=== PATIENT | female | born 1950 | race Caucasian/White ===

== ENCOUNTER 2021-06-07 09:11 | Outpatient (CLI) | payer MEDICARE, OTHER ==
[2021-06-07 13:51] LABS: BASOPHILS % (AUTO) 0.3 %; EOSINOPHILS # (AUTO) 0.1 10^3/uL (0.0-0.7); EOSINOPHILS % (AUTO) 1.2 %; HCT - HEMATOCRIT 35.9 % (37.0-47.0); HGB - HEMOGLOBIN 11.5 g/dL (12.0-16.0); LYMPHOCYTES # (AUTO) 2.1 10^3/uL (1.5-3.5); LYMPHOCYTES % (AUTO) 32.4 %; MEAN CORPUSCULAR HEMOGLOBIN 29.1 pg (27.0-31.0); MEAN CORPUSCULAR VOLUME 90.9 fL (81.0-99.0); MEAN PLATELET VOLUME 11.6 fL (7.9-10.8); MONOCYTES # (AUTO) 0.5 10^3/uL (0.0-1.0); MONOCYTES % (AUTO) 7.4 %; NEUTROPHILS # (AUTO) 3.8 10^3/uL (1.5-6.6); NEUTROPHILS % (AUTO) 58.5 %; PLT - PLATELET COUNT 199 10^3/uL (130-450); RED BLOOD COUNT 3.95 10^6/uL (4.20-5.40); RED CELL DISTRIBUTION WIDTH 12.8 % (12.0-15.0); WHITE BLOOD COUNT 6.5 x10^3/uL (4.8-10.8)
[2021-06-07 14:28] LABS: THYROID STIMULATING HORMONE 0.68 uIU/mL (0.34-5.60)
[2021-06-07 14:45] LABS: ALBUMIN/GLOBULIN RATIO 1.4 (1.0-2.2); ALKALINE PHOSPHATASE 59 IU/L (42-121); ALT ALANINE AMINOTRANSFERASE 15 IU/L (10-60); AST ASPARTATE AMINOTRANSFERASE 17 IU/L (10-42); BILIRUBIN,TOTAL 0.9 mg/dL (0.2-1.0); BUN - BLOOD UREA NITROGEN 25 mg/dL (6-20); CALCIUM 9.5 mg/dL (8.5-10.3); CARBON DIOXIDE - CO2 25 mmol/L (21-32); CHLORIDE 101 mmol/L (101-111); CHOL/HDL RATIO 2.7 (<4.4); CHOLESTEROL 129 mg/dL; CREATININE 0.9 mg/dL (0.4-1.0); GFR - MDRD 62 (>89); GLUCOSE 107 mg/dL (70-100); HDL CHOLESTEROL 47 mg/dL; LDL CHOLESTEROL,CALCULATED 67 mg/dL; LDL/HDL RATIO 1.4 (<4.4); POTASSIUM 4.4 mmol/L (3.5-5.0); SODIUM 137 mmol/L (135-145); TOTAL PROTEIN 6.9 g/dL (6.7-8.2); TRIGLYCERIDES 75 mg/dL; VLDL CHOLESTEROL 15 mg/dL
== END 2021-06-07 09:12 | disposition home or self-care (01) ==
LOC: LAB.N 09:11
PROVIDERS: ATTEND Registered Nurse
DX: K50.90 Crohn's disease, unspecified, without complications (principal); K21.9 Gastro-esophageal reflux disease without esophagitis; Z79.899 Other long term (current) drug therapy; E78.5 Hyperlipidemia, unspecified; E03.9 Hypothyroidism, unspecified
CPT/HCPCS: 36415; 80053; 80061; 83721; 84443; 85025

== ENCOUNTER 2021-11-11 17:17 | Outpatient (CLI) | payer MEDICARE, OTHER | END 2021-11-11 17:18 | disposition EMS.NT | LOC: EMS 17:17 | DX: Z03.89 Encounter for observation for other suspected diseases and conditions ruled out (principal) ==

== ENCOUNTER 2022-05-25 08:52 | Outpatient (CLI) | payer MEDICARE, OTHER ==
[2022-05-25 12:53] LABS: BASOPHILS % (AUTO) 0.3 %; EOSINOPHILS # (AUTO) 0.2 10^3/uL (0.0-0.7); EOSINOPHILS % (AUTO) 2.2 %; HCT - HEMATOCRIT 36.7 % (37.0-47.0); HGB - HEMOGLOBIN 11.4 g/dL (12.0-16.0); LYMPHOCYTES # (AUTO) 2.1 10^3/uL (1.5-3.5); LYMPHOCYTES % (AUTO) 30.9 %; MEAN CORPUSCULAR HEMOGLOBIN 28.3 pg (27.0-31.0); MEAN CORPUSCULAR HGB CONC 31.1 g/dL (32.0-36.0); MEAN CORPUSCULAR VOLUME 91.1 fL (81.0-99.0); MEAN PLATELET VOLUME 11.4 fL (7.9-10.8); MONOCYTES # (AUTO) 0.4 10^3/uL (0.0-1.0); MONOCYTES % (AUTO) 6.1 %; NEUTROPHILS # (AUTO) 4.1 10^3/uL (1.5-6.6); NEUTROPHILS % (AUTO) 60.4 %; PLT - PLATELET COUNT 200 10^3/uL (130-450); RED BLOOD COUNT 4.03 10^6/uL (4.20-5.40); RED CELL DISTRIBUTION WIDTH 13.2 % (12.0-15.0); WHITE BLOOD COUNT 6.9 x10^3/uL (4.8-10.8)
[2022-05-25 13:15] LABS: ALBUMIN 3.8 g/dL (3.2-5.5); ALBUMIN/GLOBULIN RATIO 1.2 (1.0-2.2); ALKALINE PHOSPHATASE 65 IU/L (42-121); ALT ALANINE AMINOTRANSFERASE 17 IU/L (10-60); AST ASPARTATE AMINOTRANSFERASE 18 IU/L (10-42); BILIRUBIN,TOTAL 0.5 mg/dL (0.2-1.0); BUN - BLOOD UREA NITROGEN 23 mg/dL (6-20); CALCIUM 9.4 mg/dL (8.5-10.3); CARBON DIOXIDE - CO2 23 mmol/L (21-32); CHLORIDE 106 mmol/L (101-111); CHOL/HDL RATIO 2.5 (<4.4); CHOLESTEROL 130 mg/dL; CREATININE 0.7 mg/dL (0.4-1.0); GFR - MDRD 82 (>89); GLUCOSE 118 mg/dL (70-100); HDL CHOLESTEROL 51 mg/dL; LDL CHOLESTEROL,CALCULATED 68 mg/dL; LDL/HDL RATIO 1.3 (<4.4); POTASSIUM 4.7 mmol/L (3.5-5.0); SODIUM 137 mmol/L (135-145); TOTAL PROTEIN 6.9 g/dL (6.7-8.2); TRIGLYCERIDES 56 mg/dL; VLDL CHOLESTEROL 11 mg/dL
[2022-05-25 13:29] LABS: THYROID STIMULATING HORMONE 0.72 uIU/mL (0.34-5.60)
== END 2022-05-25 08:53 | disposition home or self-care (01) ==
LOC: LAB.N 08:52
PROVIDERS: ATTEND Registered Nurse
DX: I10 Essential (primary) hypertension (principal); E03.9 Hypothyroidism, unspecified; E78.5 Hyperlipidemia, unspecified
CPT/HCPCS: 36415; 80053; 80061; 83721; 84443; 85025

== ENCOUNTER 2022-06-21 14:29 | Emergency (ER) | payer MEDICARE, OTHER ==
[2022-06-21] MEDS ORDERED: HYDROmorphone 1 MG/ML CARPUJECT IVP STA (15:02)
--- NOTE | 2022-06-21 15:09 | ED Physician Documentation ---
History of Present Illness - Stated complaint Stated Complaint: RT SIDE PX/COUGH - Chief complaint Chief Complaint: Abd Pain - History obtained from History obtained from: Patient - Additonal information Additional information: Patient is a 71-year-old female who states that she had COVID about 2 months ago. She states that she has had a chronic cough since that time. Decreased appetite over the past few days. She states that last night she was at home when she felt lightheaded, dizzy, slipped fell and fell to the floor. Hit the right side of her chest and the right side of her back on her walker and on the floor. No loss of consciousness. No head, neck, back pain. She is complaining of right-sided posterior rib pain and right-sided low back pain/flank pain. No numbness or tingling. No loss of bowel or bladder control has not taken anything for the pain. Is not on blood thinners. No seizure activity. Review of Systems Constitutional: denies: Fever, Chills Nose: reports: Rhinorrhea / runny nose, Congestion Throat: denies: Sore throat Cardiac: denies: Chest pain / pressure, Palpitations Respiratory: reports: Cough GI: denies: Abdominal Pain, Vomiting, Diarrhea : denies: Dysuria Skin: denies: Rash Musculoskeletal: denies: Neck pain, Back pain Neurologic: denies: Headache PD PAST MEDICAL HISTORY - Past Medical History Past Medical History: Yes Cardiovascular: Hypertension Endocrine/Autoimmune: HyPOthyroidism - Present Medications Home Medications: Ambulatory Orders Medication Instructions Recorded Confirmed Aspirin EC [Ecotrin] 81 mg PO DAILY 06/21/22 06/21/22 Atorvastatin [Lipitor] 20 mg PO QPM 06/21/22 06/21/22 Carvedilol [Coreg] 6.25 mg PO DAILY 06/21/22 06/21/22 Furosemide [Lasix] 20 mg PO DAILY 06/21/22 06/21/22 Levothyroxine [Synthroid] 112 mcg PO QDAC 06/21/22 06/21/22 cephALEXin [Keflex] 500 mg PO Q6H #20 cap 06/21/22 lisinopriL [Lisinopril] 10 mg ORAL DAILY 06/21/22 06/21/22 oxyCODONE [Roxicodone] 5 mg PO Q6H PRN #14 tablet MDD 6 06/21/22 - Allergies Allergies/Adverse Reactions: Allergies Allergy/AdvReac Type Severity Reaction Status Date / Time codeine Allergy Headache Verified 06/21/22 14:41 Influenza Virus Vaccines Allergy Unknown Verified 06/21/22 14:41 sulfacetamide Allergy Unknown Verified 06/21/22 14:41 [From Sulfamide] - Living Situation Living Situation: reports: With family Living Arrangement: reports: At home - Family History Family history: reports: Non contributory PD ED PE NORMAL - Vitals Vital signs reviewed: Yes - General General: Alert and oriented X 3, No acute distress, Well developed/nourished - HEENT HEENT: Atraumatic, PERRL, Ears normal, Moist mucous membranes - Neck Neck: Supple, no meningeal sign, No bony TTP (No midline tenderness to palpation or percussion. No step-off or deformity.) - Cardiac Cardiac: RRR, Strong equal pulses - Respiratory Respiratory: No respiratory distress, Clear bilaterally - Abdomen Abdomen: Soft, Non tender, Non distended - Back Back: No spinal TTP (No midline tenderness to palpation or percussion. No step- off or deformity.), Other (There is ecchymosis to the right flank and right lower ribs. Tenderness at that site as well. No crepitus.) - Derm Derm: Warm and dry - Extremities Extremities: No edema, No calf tenderness / cord - Neuro Neuro: Alert and oriented X 3 - Psych Psych: Normal mood, Normal affect Results - Vitals Vitals: Vital Signs - 24 hr 06/21/22 06/21/22 06/21/22 14:34 14:56 16:45 Temperature 37.0 C Heart Rate 107 H 108 H 108 H Respiratory 24 22 26 H Rate Blood Pressure 148/59 H 170/73 H 165/59 H O2 Saturation 96 95 90 L 06/21/22 18:00 Temperature Heart Rate 99 Respiratory 19 Rate Blood Pressure 154/81 H O2 Saturation 98 Oxygen O2 Source Room air - Labs Labs: Laboratory Tests 06/21/22 06/21/22 06/21/22 15:15 15:15 15:20 WBC 5.6 RBC 3.95 L Hgb 11.4 L Hct 34.8 L MCV 88.1 MCH 28.9 MCHC 32.8 RDW 13.5 Plt Count 174 MPV 10.8 Neut # (Auto) 3.8 Lymph # (Auto) 1.2 L [place] # (Auto) 0.6 Eos # (Auto) 0.0 Baso # (Auto) 0.0 Absolute Nucleated RBC 0.00 Nucleated RBC % 0.0 Sodium 135 Potassium 4.1 Chloride 100 L Carbon Dioxide 25 Anion Gap 10.0 BUN 16 Creatinine 0.8 Estimated GFR (MDRD) 70 L Glucose 129 H Calcium 9.6 Total Bilirubin 0.9 AST 23 ALT 15 Alkaline Phosphatase 58 Total Protein 7.4 Albumin 3.8 Globulin 3.6 Albumin/Globulin Ratio 1.1 Lipase 28 Urine Color YELLOW Urine Clarity HAZY Urine pH 5.5 Ur Specific [place] 1.020 Urine Protein NEGATIVE Urine Glucose (UA) NEGATIVE Urine Ketones NEGATIVE Urine Occult Blood SMALL H Urine Nitrite POSITIVE H Urine Bilirubin NEGATIVE Urine Urobilinogen 0.2 (NORMAL) Ur Leukocyte Esterase MODERATE H Urine RBC 6-10 H Urine WBC >25 H Urine WBC Clumps PRESENT Ur Squamous Epith Cells MANY Squamous H Amorphous Sediment Few Urine Bacteria Many H Ur Microscopic Review INDICATED Urine Culture Comments NOT INDICATED - Rads (name of study) CT chest Radiology: Final report received, See rad report CT abdomen pelvis Radiology: Final report received, See rad report PD Medical Decision Making - ED course Complexity details: reviewed results, re-evaluated patient, considered differential, d/w patient ED course: 71-year-old female status post a fall yesterday at home, pain to the right posterior ribs and right flank. There is bruising at the site as well. No acute findings on CBC other than a mild anemia which is chronic. Your abdominal panel does not show any acute abnormalities. Urinalysis is positive for UTI. Given IV Rocephin and we will place on oral antibiotics for home. Pain controlled with IV morphine. No evidence of rib fracture or solid organ injury on CT. No evidence of pneumo or hemothorax. Patient counseled regarding signs and symptoms for which I believe and urgent re-evaluation would be necessary. Patient with good understanding of and agreement to plan and is comfortable going home at this time This document was made in part using voice recognition software. While efforts are made to proofread this document, sound alike and grammatical errors may occur. Departure - Departure Disposition: 01 Home, Self Care Clinical Impression: Contusion, flank Qualifiers: Encounter type: initial encounter Qualified Code(s): S30.1XXA - Contusion of abdominal wall, initial encounter Fall Qualifiers: Encounter type: initial encounter Qualified Code(s): W19.XXXA - Unspecified fall, initial encounter UTI (urinary tract infection) Qualifiers: Urinary tract infection type: acute cystitis Hematuria presence: without hematuria Qualified Code(s): N30.00 - Acute cystitis without hematuria Condition: Good Instructions: ED Contusion Soft Tissue, ED UTI Cystitis Female Follow-Up: Violet Duran ARNP [Primary Care Provider] - Within 1 week Prescriptions: cephALEXin [Keflex] 500 mg PO Q6H #20 cap oxyCODONE [Roxicodone] 5 mg PO Q6H PRN #14 tablet MDD 6 PRN Reason: pain Comments: Your prescriptions were sent to [facility] in [place]. Please follow-up with your doctor for further care. Please take all antibiotics until gone. Your CT scans did not show any acute abnormalities today. You do have a bladder infection as we discussed and you were given antibiotics tonight. I am prescribing a short course of narcotic pain medication for you. These are potentially dangerous and addictive medications that should be used carefully. These medications may constipate you. Take an [id number] stool softener (docusate) twice daily with plenty of water while taking these medications. If you go 24 hours without a bowel movement, take [id number]-gnq-llxpelk miralax, per package instructions. Do not drink or drive while taking these medications. If you received narcotic or sedating medications while in the emergency department, do not drive for 24 hours. Store this medication in a safe, secure place and out of reach of children. It is a violation of federal law to give or sell this medication to another person or to use in a manner other than prescribed. The ED will not refill narcotic prescriptions, including prescriptions lost or stolen. To dispose of unwanted medications: 1. [facility] at [address] in [place] has a medication drop box. They accept prescription medications (in pill form) Wednesday through Wednesday 9:00 a.m. to 5:00 p.m. 2. The [facility] [employer] accepts prescription medications (in pill form only) for disposal year round. Call for more information. 3. Contact the [facility] for the next [facility] sponsored prescription drug collection event. , [phone], or [phone]; Discharge Date/Time: 06/21/22 18:57
[2022-06-21] MEDS ORDERED: iohexoL-300 100 ML VIAL ONE (15:28)
[2022-06-21 15:34] LABS: BILIRUBIN,URINE NEGATIVE (NEGATIVE); GLUCOSE, URINE (UA) NEGATIVE (NEGATIVE); KETONES,URINE (UA) NEGATIVE (NEGATIVE); LEUKOCYTE ESTERASE, URINE MODERATE (NEGATIVE); NITRITE,URINE POSITIVE (NEGATIVE); OCCULT BLOOD,URINE SMALL (NEGATIVE); PH,URINE 5.5 PH (5.0-7.5); PROTEIN,URINE NEGATIVE (NEGATIVE); UROBILINOGEN,URINE 0.2 (NORMAL) E.U./dL (NORMAL)
[2022-06-21 15:37] LABS: CLARITY,URINE HAZY (CLEAR)
[2022-06-21 15:46] LABS: BASOPHILS % (AUTO) 0.2 %; EOSINOPHILS % (AUTO) 0.2 %; HCT - HEMATOCRIT 34.8 % (37.0-47.0); HGB - HEMOGLOBIN 11.4 g/dL (12.0-16.0); LYMPHOCYTES # (AUTO) 1.2 10^3/uL (1.5-3.5); LYMPHOCYTES % (AUTO) 21.6 %; MEAN CORPUSCULAR HEMOGLOBIN 28.9 pg (27.0-31.0); MEAN CORPUSCULAR HGB CONC 32.8 g/dL (32.0-36.0); MEAN CORPUSCULAR VOLUME 88.1 fL (81.0-99.0); MEAN PLATELET VOLUME 10.8 fL (7.9-10.8); MONOCYTES # (AUTO) 0.6 10^3/uL (0.0-1.0); MONOCYTES % (AUTO) 9.9 %; NEUTROPHILS # (AUTO) 3.8 10^3/uL (1.5-6.6); NEUTROPHILS % (AUTO) 67.7 %; PLT - PLATELET COUNT 174 10^3/uL (130-450); RED BLOOD COUNT 3.95 10^6/uL (4.20-5.40); RED CELL DISTRIBUTION WIDTH 13.5 % (12.0-15.0); WHITE BLOOD COUNT 5.6 x10^3/uL (4.8-10.8)
[2022-06-21 15:49] LABS: AMORPHOUS SEDIMENT,UR Few /LPF; BACTERIA,URINE Many /HPF (None Seen); SQUAMOUS EPITHELIAL CELL,UR MANY Squamous (<= Few); WBC CLUMPS,URINE PRESENT; WBC,URINE >25 /HPF (0-5)
[2022-06-21 16:07] LABS: ALBUMIN 3.8 g/dL (3.2-5.5); ALBUMIN/GLOBULIN RATIO 1.1 (1.0-2.2); BILIRUBIN,TOTAL 0.9 mg/dL (0.2-1.0); CALCIUM 9.6 mg/dL (8.5-10.3); CREATININE 0.8 mg/dL (0.4-1.0); POTASSIUM 4.1 mmol/L (3.5-5.0); TOTAL PROTEIN 7.4 g/dL (6.7-8.2)
--- NOTE | 2022-06-21 17:29 | CT Report ---
PROCEDURE: CT chest, abdomen and pelvis with contrast INDICATIONS: fall, R sided chest pain/bruising CONTRAST:100ml omni 300 TECHNIQUE: Helical axial CT of the chest, abdomen and pelvis was obtained after intravenous contrast administrat ion and reformatted in multiple planes. For radiation dose reduction, the following was used: autom ated exposure control, adjustment of mA and/or kV according to patient size. COMPARISON: None. FINDINGS: Chest: Cardiovascular: Heart size is normal. Aorta and great vessels are unremarkable without evidence of aneurysm. Lungs and pleural spaces: Some pleural chronic interstitial changes noted with volume loss on the rig ht. No focal nodule, pneumothorax or pulmonary infiltrate. Pleural spaces show no effusion or pneumothorax. Lymph nodes: No mediastinal, hilar or axillary adenopathy. Mediastinum: Anterior mediastinum unremarkable. No hiatal hernia. Bones: T10 wedge-shaped compression fracture, uncertain age. No retropulsed fracture fragment. Old he aled midsternal fracture noted Other: Thyroid unremarkable. Abdomen and Pelvis: Liver: Normal in size and attenuation. No contour deformity present. Biliary system: No calcified cholelithiasis or pericholecystic inflammation. No intra or extrahepat ic bile duct dilatation. Pancreas: Unremarkable without mass or inflammation evident. Spleen: Normal in size and density. Adrenals: Normal morphology and density. Reproductive system: Unremarkable as visualized. Urinary system: Normal renal size and attenuation. No renal calculi, hydronephrosis, or solid mass p resent. Urinary bladder unremarkable. Gastrointestinal system: The bowel appears unremarkable with no evidence of bowel obstruction or inf lammation. The stomach appears unremarkable. No findings to suggest acute appendicitis. Peritoneal spaces: No intra- or retroperitoneal adenopathy. No free air. No free fluid. Vasculature: The IVC, aorta and iliac vasculature are unremarkable. Musculoskeletal: Multilevel degenerative disc disease and arthropathy in the lumbar spine associated with grade 1 anterior spondylolisthesis L4-5 IMPRESSION: 1. Wedge-shaped T10 compression fracture, uncertain age. No retropulsed fracture fragment. Old healed midsternal fracture also noted. 2. No evidence of rib fracture or solid organ injury. No pneumothorax. Reviewed by: José Ann MD on 06/21/2022 4:27 PM AK Approved by: José Ann MD on 06/21/2022 4:27 PM AKST Station ID: [id number]
[2022-06-21] MEDS ORDERED: cefTRIAXone 1 GM VIAL IVP STA (17:48)
[2022-06-21] MEDS ORDERED: iohexoL-300 100 ML VIAL IVP ONE (17:59)
[2022-06-21 18:07] VITALS: BP 154/81
[2022-06-21] MEDS ORDERED: oxyCODONE 5 MG TABLET PO STA (18:37)
== END 2022-06-21 18:57 | disposition home or self-care (01) ==
LOC: ED 14:29
DX: S30.1XXA Contusion of abdominal wall, initial encounter (principal); W01.198A Fall on same level from slipping, tripping and stumbling with subsequent striking against other object, initial encounter; Y92.009 Unspecified place in unspecified non-institutional (private) residence as the place of occurrence of the external cause; N30.00 Acute cystitis without hematuria
CPT/HCPCS: 36415; 71260; 74177; 80053; 81001; 83690; 85025; 96374; 96375; 99284; A9270; J1170; Q9967; 81003; 87086

== ENCOUNTER 2022-08-24 13:01 | Outpatient (CLI) | payer MEDICARE ==
--- NOTE | 2022-09-04 12:41 | Mammography Report ---
BILATERAL DIGITAL SCREENING MAMMOGRAM 3D/2D: 08/24/2022 CLINICAL: Routine screening. No prior exams were available for comparison. Both breasts are heterogeneously dense, which may obscure small masses (category c / 51-75% glandular tissue). There are benign calcifications in both breasts. There also are benign vascular calcifications in th e right breast. Additionally, there are benign post operative findings in the left breast. No significant masses, calcifications, or other findings are seen in either breast. IMPRESSION: BENIGN There is no mammographic evidence of malignancy. A 1 year screening mammogram is recommended. Based on the Tyrer Cuzick model (a risk assessment model) the patients lifetime risk is 4.7% and her 10 year risk is 4.2%. According to the ACR, ACS, and NCCN guidelines, an annual breast MRI exam nahid g with mammogram is recommended if the patients lifetime risk is 20% or greater. This exam was interpreted at Station ID: [id number]. NOTE: For mammograms, a report in lay terms will be sent to the patient. Approximately 15% of breast malignancies will not be visualized mammographically. In the management of a palpable breast mass, a negative mammogram must not discourage biopsy of a clinically suspicious lesion. Electronically Signed By: Jim millan/chary:09/04/2022 11:54:27 letter sent: No_Letter ACR BI-RADS Category 2: Benign Finding(s) 3342F PARENCHYMAL PATTERN: (D) - The breast(s) demonstrate(s) heterogeneously dense fibroglandular parenchy ma. BI-RADS CATEGORY: (2) - 2 Mammogram [id number] 1 year screening LATERALITY: (B)
== END 2022-08-24 13:02 | disposition home or self-care (01) ==
LOC: DI.N 13:01
PROVIDERS: ATTEND Registered Nurse
DX: Z12.31 Encounter for screening mammogram for malignant neoplasm of breast (principal)

== ENCOUNTER 2022-10-21 07:00 | Outpatient (CLI) | payer MEDICARE ==
--- NOTE | 2022-10-22 12:33 | XRAY Report ---
PROCEDURE: Chest 2 View X-Ray INDICATIONS: COUGH TECHNIQUE: 2 views of the chest were acquired. COMPARISON: CT chest 06/21/2022.. FINDINGS: Surgical changes and devices: None. Lungs and pleura: Chronic peripheral reticulations are seen, which do not appear significant changed when compared to the prior CT. No pleural effusion or pneumothorax. No focal consolidation. Mediastinum: Mediastinal contours appear normal. Heart size is normal. Bones and chest wall: Generalized osteopenia. Chronic appearing lower thoracic compression fracture appears unchanged compared to the prior CT. IMPRESSION: Stable chronic bilateral interstitial opacities as seen on the prior CT, consistent with chronic inte rstitial lung disease. No acute cardiopulmonary abnormality identified. Reviewed by: Derrick Candelaria MD on 10/22/2022 12:32 PM PDT Approved by: Derrick Candelaria MD on 10/22/2022 12:32 PM PDT Station ID: [id number]
== END 2022-10-21 23:59 | disposition home or self-care (01) ==
LOC: DI.S 07:00
PROVIDERS: ATTEND Internal Medicine
DX: R05.9 Cough, unspecified (principal)

== ENCOUNTER 2022-11-02 10:08 | Outpatient (CLI) | payer MEDICARE ==
[2022-11-02 19:18] LABS: BASOPHILS % (AUTO) 0.4 %; EOSINOPHILS # (AUTO) 0.1 10^3/uL (0.0-0.7); EOSINOPHILS % (AUTO) 0.7 %; HCT - HEMATOCRIT 35.3 % (37.0-47.0); HGB - HEMOGLOBIN 11.2 g/dL (12.0-16.0); LYMPHOCYTES # (AUTO) 2.7 10^3/uL (1.5-3.5); LYMPHOCYTES % (AUTO) 36.9 %; MEAN CORPUSCULAR HEMOGLOBIN 29.2 pg (27.0-31.0); MEAN CORPUSCULAR HGB CONC 31.7 g/dL (32.0-36.0); MEAN CORPUSCULAR VOLUME 91.9 fL (81.0-99.0); MEAN PLATELET VOLUME 11.7 fL (7.9-10.8); MONOCYTES # (AUTO) 0.5 10^3/uL (0.0-1.0); MONOCYTES % (AUTO) 6.7 %; NEUTROPHILS % (AUTO) 55.2 %; PLT - PLATELET COUNT 198 10^3/uL (130-450); RED BLOOD COUNT 3.84 10^6/uL (4.20-5.40); RED CELL DISTRIBUTION WIDTH 12.9 % (12.0-15.0); WHITE BLOOD COUNT 7.2 x10^3/uL (4.8-10.8)
[2022-11-02 19:27] LABS: ALBUMIN 3.9 g/dL (3.2-5.5); ALBUMIN/GLOBULIN RATIO 1.1 (1.0-2.2); BILIRUBIN,TOTAL 0.5 mg/dL (0.2-1.0); CALCIUM 9.8 mg/dL (8.5-10.3); CREATININE 0.8 mg/dL (0.4-1.0); POTASSIUM 4.6 mmol/L (3.5-5.0); TOTAL PROTEIN 7.3 g/dL (6.7-8.2)
[2022-11-02 19:40] LABS: THYROID STIMULATING HORMONE 0.29 uIU/mL (0.34-5.60)
[2022-11-02 20:11] LABS: FREE T4 (FREE THYROXINE) 1.84 ng/dL (0.58-1.64)
== END 2022-11-02 10:09 | disposition home or self-care (01) ==
LOC: LAB.N 10:08
PROVIDERS: ATTEND Registered Nurse
DX: R60.9 Edema, unspecified (principal); R53.83 Other fatigue
CPT/HCPCS: 36415; 80053; 83880; 84439; 84443; 85025

== ENCOUNTER 2022-12-21 10:13 | Outpatient (CLI) | payer MEDICARE ==
[2022-12-21 13:00] LABS: BASOPHILS % (AUTO) 0.3 %; EOSINOPHILS # (AUTO) 0.1 10^3/uL (0.0-0.7); EOSINOPHILS % (AUTO) 1.1 %; HCT - HEMATOCRIT 35.1 % (37.0-47.0); HGB - HEMOGLOBIN 11.1 g/dL (12.0-16.0); LYMPHOCYTES # (AUTO) 2.5 10^3/uL (1.5-3.5); LYMPHOCYTES % (AUTO) 38.3 %; MEAN CORPUSCULAR HEMOGLOBIN 29.1 pg (27.0-31.0); MEAN CORPUSCULAR HGB CONC 31.6 g/dL (32.0-36.0); MEAN CORPUSCULAR VOLUME 92.1 fL (81.0-99.0); MEAN PLATELET VOLUME 11.3 fL (7.9-10.8); MONOCYTES # (AUTO) 0.4 10^3/uL (0.0-1.0); MONOCYTES % (AUTO) 6.7 %; NEUTROPHILS # (AUTO) 3.5 10^3/uL (1.5-6.6); NEUTROPHILS % (AUTO) 53.3 %; PLT - PLATELET COUNT 211 10^3/uL (130-450); RED BLOOD COUNT 3.81 10^6/uL (4.20-5.40); RED CELL DISTRIBUTION WIDTH 12.9 % (12.0-15.0); WHITE BLOOD COUNT 6.6 x10^3/uL (4.8-10.8)
[2022-12-21 13:30] LABS: THYROID STIMULATING HORMONE 0.12 uIU/mL (0.34-5.60)
[2022-12-21 13:39] LABS: FERRITIN 58.2 ng/mL (11.0-306.8)
== END 2022-12-21 10:14 | disposition home or self-care (01) ==
LOC: LAB.N 10:13
PROVIDERS: ATTEND Nurse Practitioner
DX: D64.9 Anemia, unspecified (principal); E03.9 Hypothyroidism, unspecified
CPT/HCPCS: 36415; 82607; 82728; 82746; 83540; 84439; 84443; 84466; 85025

== ENCOUNTER 2022-12-30 16:22 | Emergency (ER) | payer MEDICARE ==
--- NOTE | 2022-12-30 16:36 | ED Physician Documentation ---
PD HPI SKIN - Stated complaint Stated Complaint: RT THUMB PX - Chief complaint Chief Complaint: Ext Problem - History obtained from History obtained from: Patient - History of Present Illness Timing - onset: How many days ago (3-4) Timing - duration: Days (3-4) Timing - details: Gradual onset (She had tenderness and swelling near the base of the thumb nailbed. No noted injury. It is gotten progressively more swollen and painful. No drainage.) Location: Other (right thumb) Quality / character: Painful, Discolored (red), Swelling Review of Systems Constitutional: denies: Fever, Chills Neurologic: denies: Focal weakness, Numbness PD PAST MEDICAL HISTORY - Past Medical History Cardiovascular: Hypertension Endocrine/Autoimmune: HyPOthyroidism - Present Medications Home Medications: Ambulatory Orders Medication Instructions Recorded Confirmed Aspirin EC [Ecotrin] 81 mg PO DAILY 06/21/22 06/21/22 Atorvastatin [Lipitor] 20 mg PO QPM 06/21/22 06/21/22 Furosemide [Lasix] 20 mg PO DAILY 06/21/22 06/21/22 Levothyroxine [Synthroid] 112 mcg PO QDAC 06/21/22 06/21/22 carvediloL [Coreg] 6.25 mg PO DAILY 06/21/22 06/21/22 lisinopriL [Lisinopril] 10 mg ORAL DAILY 06/21/22 06/21/22 Doxycycline Hyclate 100 mg PO BID 7 Days #14 cap 12/30/22 - Allergies Allergies/Adverse Reactions: Allergies Allergy/AdvReac Type Severity Reaction Status Date / Time codeine Allergy Headache Verified 06/21/22 14:41 Influenza Virus Vaccines Allergy Unknown Verified 06/21/22 14:41 sulfacetamide Allergy Unknown Verified 06/21/22 14:41 [From Sulfamide] PD ED PE NORMAL - Vitals Vital signs reviewed: Yes - General General: Alert and oriented X 3, No acute distress, Well developed/nourished - Derm Derm: Normal color, Warm and dry - Extremities Extremities: Other (The right thumb shows a localized area of white skin a few millimeters in diameter consistent with a small pustule and fluctuance underneath. There is also redness and swelling extending down to the IP joint. Normal sensation at the tip of the thumb.) Results - Vitals Vitals: Vital Signs - 24 hr 12/30/22 16:28 Temperature 37.0 C Heart Rate 99 Respiratory 18 Rate Blood Pressure 144/62 H O2 Saturation 97 Oxygen O2 Source Room air Procedures - Abscess I&D (location) right thumb paronychia Incision: Incised with scalpel, Purulent drainage, Irrigated Other: Pt tolerated well, Antibiotic prescribed PD Medical Decision Making - ED course Complexity details: considered differential (paronychia with pustule but also cellulitis of thumb to the IP joint. ), d/w patient Departure - Departure Disposition: 01 Home, Self Care Clinical Impression: Paronychia, Cellulitis of thumb, right Condition: Stable Record reviewed to determine appropriate education?: Yes Prescriptions: Doxycycline Hyclate 100 mg PO BID 7 Days #14 cap Comments: We did get some purulence out from the wound. However there is still infection through the tissue where it is red and swollen. I would have you soak in warm water 2-3 times daily to help dry out any further purulence from within the wound. Doxycycline antibiotic twice daily for the next 5 days to help with the infection. Also add Tylenol every 4-6 hours if needed for pains. I would anticipate this improving well over the next 2 to 3 days with a combination of draining it and the antibiotics. I sent your prescription to [facility] pharmacy. Forms: PCP List
[2022-12-30 16:39] VITALS: BP 144/62; O2SAT 97
[2022-12-30] MEDS ORDERED: DOXYCYCLINE 100 MG TABLET PO STA (16:46)
[2022-12-30] MEDS ORDERED: ACETAMINOPHEN 325 MG TABLET PO STA (16:47)
== END 2022-12-30 17:08 | disposition home or self-care (01) ==
LOC: ED 16:22
DX: I10 Essential (primary) hypertension (principal); L03.011 Cellulitis of right finger
CPT/HCPCS: 10060; 99282; A9270

== ENCOUNTER 2023-02-09 12:46 | Emergency (ER) | payer MEDICARE ==
--- NOTE | 2023-02-09 15:52 | ED Physician Documentation ---
History of Present Illness - Stated complaint Stated Complaint: SOA/ABNORMAL TESTS - Chief complaint Chief Complaint: General - History obtained from History obtained from: Patient - Additonal information Additional information: 72-year-old woman was seen in the walk-in clinic about a month ago and had an echocardiogram done which showed normal EF. Mild diastolic dysfunction. Severely dilated left atrium. Mild MR, small ASD and mild pulmonary hypertension. The clinic called her, it is unclear how the conversation went but it sounds like she was told she needed follow-up which she interpreted as needing to come directly to the emergency department. She has no chest pain and is not short of breath. PD PAST MEDICAL HISTORY - Past Medical History Cardiovascular: Hypertension Endocrine/Autoimmune: HyPOthyroidism - Present Medications Home Medications: Ambulatory Orders Medication Instructions Recorded Confirmed Aspirin EC [Ecotrin] 81 mg PO DAILY 06/21/22 06/21/22 Atorvastatin [Lipitor] 20 mg PO QPM 06/21/22 06/21/22 Furosemide [Lasix] 20 mg PO DAILY 06/21/22 06/21/22 Levothyroxine [Synthroid] 112 mcg PO QDAC 06/21/22 06/21/22 carvediloL [Coreg] 6.25 mg PO DAILY 06/21/22 06/21/22 lisinopriL [Lisinopril] 10 mg ORAL DAILY 06/21/22 06/21/22 Doxycycline Hyclate 100 mg PO BID 7 Days #14 cap 12/30/22 - Allergies Allergies/Adverse Reactions: Allergies Allergy/AdvReac Type Severity Reaction Status Date / Time codeine Allergy Headache Verified 02/09/23 12:58 Influenza Virus Vaccines Allergy Unknown Verified 02/09/23 12:58 sulfacetamide Allergy Unknown Verified 02/09/23 12:58 [From Sulfamide] - Social History Does the pt smoke?: No Smoking Status: Never smoker PD ED PE NORMAL - Vitals Vital signs reviewed: Yes - General General: Alert and oriented X 3, No acute distress - Cardiac Cardiac: RRR, Other (Systolic murmur heard best at the apex, 2 out of 6, decrescendo) - Respiratory Respiratory: Clear bilaterally - Abdomen Abdomen: Non tender - Extremities Extremities: Other (Mild pitting pedal edema which she says is chronic) - Neuro Neuro: Alert and oriented X 3, Normal speech Results - Vitals Vitals: Vital Signs - 24 hr 02/09/23 02/09/23 12:58 15:58 Temperature 36.5 C 36.6 C Heart Rate 88 80 Respiratory 16 16 Rate Blood Pressure 160/60 H 164/60 H O2 Saturation 96 100 Oxygen O2 Source Room air PD Medical Decision Making - ED course ED course: Patient here in the emergency department with 1-month-old echo not needing any urgent intervention. Will email her PCP to refer to cardiology, but there is no emergency medical condition. Departure - Departure Disposition: Home, Self Care Clinical Impression: Abnormal echocardiogram Condition: Good Record reviewed to determine appropriate education?: Yes Follow-Up: Ashley Guerra ARNP [Provider Admit Priv/Credential] - Comments: None of the findings on your echocardiogram require urgent or emergent intervention. I will email ZAY Guerra as cardiology referral would be appropriate, but again there is no urgency to this. Return if worse. Forms: PCP List Discharge Date/Time: 02/09/23 16:02
[2023-02-09 16:02] VITALS: BP 164/60; O2SAT 100
== END 2023-02-09 16:02 | disposition home or self-care (01) ==
LOC: ED 12:46
DX: R93.1 Abnormal findings on diagnostic imaging of heart and coronary circulation (principal)
CPT/HCPCS: 99282; 99283

== ENCOUNTER 2023-09-06 10:07 | Outpatient (CLI) | payer MEDICARE ==
--- NOTE | 2023-09-07 08:56 | Mammography Report ---
BILATERAL DIGITAL SCREENING MAMMOGRAM 3D/2D: 09/06/2023 CLINICAL: Routine screening. Comparison is made to exam dated: 08/24/2022 mammogram - [facility]. Both breasts are heterogeneously dense, which may obscure small masses (category c / 51-75% glandular tissue). There are benign calcifications in both breasts. There also are benign vascular calcifications in th e right breast. Additionally, there are benign post operative findings in the left breast. No significant masses, calcifications, or other findings are seen in either breast. There has been no significant interval change. IMPRESSION: BENIGN There is no mammographic evidence of malignancy. A 1 year screening mammogram is recommended. Based on the Tyrer Cuzick model (a risk assessment model) the patient's lifetime risk is 4.4% and her 10 year risk is 4.4%. According to the ACR, ACS, and NCCN guidelines, an annual breast MRI exam nahid g with mammogram is recommended if the patient's lifetime risk is 20% or greater. This exam was interpreted at Station ID: [id number]. NOTE: For mammograms, a report in lay terms will be sent to the patient. Approximately 15% of breast malignancies will not be visualized mammographically. In the management of a palpable breast mass, a negative mammogram must not discourage biopsy of a clinically suspicious lesion. Electronically Signed By: Juan crouch/chary:09/06/2023 11:58:34 letter sent: No_Letter ACR BI-RADS Category 2: Benign Finding(s) 3342F PARENCHYMAL PATTERN: (D) - The breast(s) demonstrate(s) heterogeneously dense fibroglandular tiffany crocker. BI-RADS CATEGORY: (2) - 2 RECOMMENDATION: (ANNUAL) - Recommend routine annual screening mammography. [id number] 1 year screening LATERALITY: (B)
== END 2023-09-06 10:08 | disposition home or self-care (01) ==
LOC: DI.N 10:07
PROVIDERS: ATTEND Registered Nurse
DX: Z12.31 Encounter for screening mammogram for malignant neoplasm of breast (principal); R92.333 Mammographic heterogeneous density, bilateral breasts

== ENCOUNTER 2023-11-20 09:57 | Outpatient (CLI) | payer MEDICARE ==
[2023-11-20 10:16] LABS: BASOPHILS % (AUTO) 0.2 %; EOSINOPHILS # (AUTO) 0.1 10^3/uL (0.0-0.7); EOSINOPHILS % (AUTO) 0.8 %; HCT - HEMATOCRIT 36.5 % (37.0-47.0); HGB - HEMOGLOBIN 11.4 g/dL (12.0-16.0); LYMPHOCYTES # (AUTO) 1.9 10^3/uL (1.5-3.5); MEAN CORPUSCULAR HEMOGLOBIN 28.1 pg (27.0-31.0); MEAN CORPUSCULAR HGB CONC 31.2 g/dL (32.0-36.0); MEAN CORPUSCULAR VOLUME 90.1 fL (81.0-99.0); MEAN PLATELET VOLUME 9.9 fL (7.9-10.8); MONOCYTES # (AUTO) 0.4 10^3/uL (0.0-1.0); MONOCYTES % (AUTO) 6.2 %; NEUTROPHILS # (AUTO) 4.3 10^3/uL (1.5-6.6); NEUTROPHILS % (AUTO) 64.6 %; PLT - PLATELET COUNT 196 10^3/uL (130-450); RED BLOOD COUNT 4.05 10^6/uL (4.20-5.40); RED CELL DISTRIBUTION WIDTH 13.1 % (12.0-15.0); WHITE BLOOD COUNT 6.7 x10^3/uL (4.8-10.8)
[2023-11-20 10:32] LABS: CALCIUM 9.8 mg/dL (8.5-10.3); CREATININE 0.7 mg/dL (0.6-1.3)
[2023-11-20 10:49] LABS: THYROID STIMULATING HORMONE 0.06 uIU/mL (0.34-5.60)
[2023-11-20 12:17] LABS: ESTIMATED AVERAGE GLUCOSE 108 mg/dL (70-100); HEMOGLOBIN A1c% 5.4 % (4.27-6.07)
== END 2023-11-20 09:58 | disposition home or self-care (01) ==
LOC: LAB 09:57
PROVIDERS: ATTEND Nurse Practitioner
DX: E03.9 Hypothyroidism, unspecified (principal); R73.9 Hyperglycemia, unspecified; D64.9 Anemia, unspecified
CPT/HCPCS: 36415; 80048; 83036; 84439; 84443; 85025

== ENCOUNTER 2023-12-13 10:54 | Emergency (ER) | payer MEDICARE ==
[2023-12-13 11:34] LABS: BILIRUBIN,URINE NEGATIVE (NEGATIVE); GLUCOSE, URINE (UA) NEGATIVE (NEGATIVE); KETONES,URINE (UA) NEGATIVE (NEGATIVE); LEUKOCYTE ESTERASE, URINE NEGATIVE (NEGATIVE); NITRITE,URINE NEGATIVE (NEGATIVE); OCCULT BLOOD,URINE NEGATIVE (NEGATIVE); PROTEIN,URINE NEGATIVE (NEGATIVE); UROBILINOGEN,URINE 0.2 (NORMAL) E.U./dL (NORMAL)
[2023-12-13 11:36] LABS: CLARITY,URINE CLEAR (CLEAR)
--- NOTE | 2023-12-13 11:52 | XRAY Report ---
PROCEDURE: Lumbar Spine 2-3V INDICATIONS: LOWER BACK PAIN TECHNIQUE: 3 views of the lumbar spine were acquired. COMPARISON: CT abdomen and pelvis dated 06/21/2022. FINDINGS: Surgical change: Minimally visualized left hip arthroplasty. Bones: 5 lid-eju-hotouar vertebrae are present. Mild levocurvature, mild anterolisthesis of L4 on L5 , lower lumbar facet arthropathy.. Mild age indeterminate T12 compression fracture. It was not presen t on the previous study. No suspicious bony lesions. Soft tissues: Overlying bowel gas pattern is normal. No suspicious soft tissue calcifications. IMPRESSION: 1. Age-indeterminate mild T12 compression. 2. Degenerative change. Reviewed by: Edis Page MD on 12/13/2023 11:51 AM PDT Approved by: Edis Page MD on 12/13/2023 11:51 AM PDT Station ID: [id number]
[2023-12-13 11:57] LABS: BASOPHILS % (AUTO) 0.3 %; EOSINOPHILS # (AUTO) 0.1 10^3/uL (0.0-0.7); EOSINOPHILS % (AUTO) 1.2 %; HGB - HEMOGLOBIN 11.5 g/dL (12.0-16.0); LYMPHOCYTES # (AUTO) 2.6 10^3/uL (1.5-3.5); LYMPHOCYTES % (AUTO) 38.3 %; MEAN CORPUSCULAR HEMOGLOBIN 28.2 pg (27.0-31.0); MEAN CORPUSCULAR HGB CONC 31.9 g/dL (32.0-36.0); MEAN CORPUSCULAR VOLUME 88.2 fL (81.0-99.0); MEAN PLATELET VOLUME 9.8 fL (7.9-10.8); MONOCYTES # (AUTO) 0.4 10^3/uL (0.0-1.0); MONOCYTES % (AUTO) 5.2 %; NEUTROPHILS # (AUTO) 3.8 10^3/uL (1.5-6.6); NEUTROPHILS % (AUTO) 54.6 %; PLT - PLATELET COUNT 206 10^3/uL (130-450); RED BLOOD COUNT 4.08 10^6/uL (4.20-5.40); RED CELL DISTRIBUTION WIDTH 13.3 % (12.0-15.0); WHITE BLOOD COUNT 6.9 x10^3/uL (4.8-10.8)
[2023-12-13 12:07] LABS: ALBUMIN 4.1 g/dL (3.2-5.5); ALBUMIN/GLOBULIN RATIO 1.2 (1.0-2.2); BILIRUBIN,TOTAL 0.5 mg/dL (0.2-1.0); CALCIUM 9.7 mg/dL (8.5-10.3); CREATININE 0.9 mg/dL (0.6-1.3); POTASSIUM 3.8 mmol/L (3.5-4.5); TOTAL PROTEIN 7.4 g/dL (6.4-8.9)
--- NOTE | 2023-12-13 13:33 | ED Physician Documentation ---
History of Present Illness - Stated complaint Stated Complaint: GI,ABD/BACK PX - Chief complaint Chief Complaint: Abd Pain - History obtained from History obtained from: Patient, Family (Son) - History of Present Illness Timing: Prior to arrival - Additonal information Additional information: Patient is a 73-year-old female presenting to the emergency department with back pain and abdominal pain. Patient notes a few weeks ago she fell when trying to help her clean out her cats litter box. Patient shortly after slipped fell landed on her back and right arm. Patient notes persistent low back pain. She has been having worsening constipation for about a week now. She has had small bowel movements but no complete bowel movement. She took Dulcolax last night with severe abdominal cramping all night. She has no nausea or vomiting. She has been eating less secondary to pain in her stomach and back. She denies any fevers or chills. No chest pain or shortness of breath associate with her symptoms. No history of abdominal surgeries. PD PAST MEDICAL HISTORY - Past Medical History Cardiovascular: Hypertension Endocrine/Autoimmune: HyPOthyroidism - Present Medications Home Medications: Ambulatory Orders Medication Instructions Recorded Confirmed Aspirin EC [Ecotrin] 81 mg PO DAILY 06/21/22 06/21/22 Atorvastatin [Lipitor] 20 mg PO QPM 06/21/22 06/21/22 Furosemide [Lasix] 20 mg PO DAILY 06/21/22 06/21/22 Levothyroxine [Synthroid] 112 mcg PO QDAC 06/21/22 06/21/22 carvediloL [Coreg] 6.25 mg PO DAILY 06/21/22 06/21/22 lisinopriL [Lisinopril] 10 mg ORAL DAILY 06/21/22 06/21/22 Doxycycline Hyclate 100 mg PO BID 7 Days #14 cap 12/30/22 Cyclobenzaprine [Flexeril] 10 mg PO TID PRN #20 tablet 12/13/23 Lidocaine Patch 5% [Lidoderm Patch] 1 patch TOP DAILY PRN #10 patch 12/13/23 polyethylene glycoL 3350(BULK) 17 gm PO DAILY PRN #1 each 12/13/23 [Miralax] - Allergies Allergies/Adverse Reactions: Allergies Allergy/AdvReac Type Severity Reaction Status Date / Time codeine Allergy Headache Verified 02/09/23 12:58 Influenza Virus Vaccines Allergy Unknown Verified 02/09/23 12:58 Sulfa (Sulfonamide Allergy Unknown Verified 12/13/23 11:09 Antibiotics) sulfacetamide Allergy Unknown Verified 02/09/23 12:58 [From Sulfamide] - Social History Does the pt smoke?: No Smoking Status: Never smoker PD ED PE NORMAL - Vitals Vital signs reviewed: Yes - General General: Alert and oriented X 3 - HEENT HEENT: Atraumatic - Cardiac Cardiac: RRR, No murmur, No gallop, No rub - Respiratory Respiratory: No respiratory distress, Clear bilaterally - Abdomen Abdomen: Normal bowel sounds, Soft, Non tender, Non distended - Female Female : Deferred - Rectal Rectal: Deferred - Back Back: No CVA TTP, Other (Reproducible spinous process tenderness along lumbar and thoracic spine) - Derm Derm: Normal color, Warm and dry, No rash - Extremities Extremities: No deformity, Other (Full range of motion of bilateral lower legs stable gait on ambulation sensation intact in bilateral lower extremities.) - Neuro Neuro: Alert and oriented X 3 Eye Opening: Spontaneous Motor: Obeys Commands Verbal: Oriented GCS Score: 15 - Psych Psych: Normal mood, Normal affect Results - Vitals Vitals: Vital Signs - 24 hr 12/13/23 12/13/23 12/13/23 11:02 13:24 15:00 Temperature 37.1 C Heart Rate 83 88 91 Respiratory 18 17 16 Rate Blood Pressure 151/116 H 145/71 H 149/68 H O2 Saturation 99 97 99 12/13/23 17:51 Temperature Heart Rate 99 Respiratory 16 Rate Blood Pressure 146/58 H O2 Saturation 99 Oxygen O2 Source Room air - Labs Labs: Laboratory Tests 12/13/23 12/13/23 12/13/23 11:20 11:43 11:43 WBC 6.9 RBC 4.08 L Hgb 11.5 L Hct 36.0 L MCV 88.2 MCH 28.2 MCHC 31.9 L RDW 13.3 Plt Count 206 MPV 9.8 Neut # (Auto) 3.8 Lymph # (Auto) 2.6 Clinch # (Auto) 0.4 Eos # (Auto) 0.1 Baso # (Auto) 0.0 Absolute Nucleated RBC 0.00 Nucleated RBC % 0.0 Sodium 138 Potassium 3.8 Chloride 102 Carbon Dioxide 27 Anion Gap 9.0 BUN 16 Creatinine 0.9 Estimated GFR (MDRD) 61 L Glucose 121 H Calcium 9.7 Total Bilirubin 0.5 AST 21 ALT 27 Alkaline Phosphatase 79 Total Protein 7.4 Albumin 4.1 Globulin 3.3 Albumin/Globulin Ratio 1.2 Lipase 15 Urine Color LIGHT YELLOW Urine Clarity CLEAR Urine pH 6.0 Ur Specific [place] <=1.005 Urine Protein NEGATIVE Urine Glucose (UA) NEGATIVE Urine Ketones NEGATIVE Urine Occult Blood NEGATIVE Urine Nitrite NEGATIVE Urine Bilirubin NEGATIVE Urine Urobilinogen 0.2 (NORMAL) Ur Leukocyte Esterase NEGATIVE Ur Microscopic Review NOT INDICATED Urine Culture Comments NOT INDICATED - Rads (name of study) lumbar spine x-ray Relevant Findings:: EMP independent interpretation of test (Concern for acute T12 compression) CT abdomen pelvis Relevant Findings:: EMP independent interpretation of test PD Medical Decision Making - ED course Complexity details: reviewed old records, reviewed results, re-evaluated patient ED course: Patient is a 73-year-old female presenting to the emergency department with low back pain and abdominal pain patient felt 3 weeks ago when trying to clean out the litter box. She sustained injury to her lower back. She has been taking Tylenol for her pain with no relief. She is also endorsing abdominal pain and cramping that has been going on for about a week and a half and worsened last night after taking Dulcolax. She notes she has been constipated due to her symptoms. She saw her PCP this morning who instructed she come to the emergency department due to severe pain on examination. Vital stable on arrival. Physical exam shows mildly distended abdomen with active bowel sounds on auscultation but diffuse guarding on examination and reproducible tenderness in left lower quadrant. Reproducible lumbar and thoracic spine tenderness of the spinous processes on examination. There is bruising noted to right portion of lateral right ribs with mild swelling on examination but no reproducible tenderness on examination. X-ray of lumbar spine shows possible new acute compression fracture of T12. Given patient's abdominal pain bloating constipation symptoms we will also obtain CT abdomen to further evaluate spinous process findings. CT abdomen pelvis shows Interval development of a mild to moderate T12 compression fracture, likely acute or subacute. Distended cecum filled with fecal material with moderately large right colonic and transverse colonic fecal load. Consider possible constipation related to pain medications.. Discussed with patient findings on CT scan showing significant constipation will give enema here in the emergency department. Patient additionally has T12 compression fracture. No signs of retropulsion on CT scan no signs of rib fractures or other acute fractures there is of right-sided hip arthroplasty in place as well. Discussed with patient given CT fracture of T12 but no focal neurodeficits patient is safe for discharge home and follow-up with orthopedics in the outpatient setting. Patient is agreeable with this plan. She was offered a TLSO brace but declines as it could worsen her pain more. Patient is agreeable with taking pain medications at home we will give small dose of Flexeril for muscle pain control around spinous processes and will also give lidocaine patches that patient can take at home. Patient is agreeable with this plan. Departure - Departure Disposition: Home, Self Care Clinical Impression: T12 compression fracture, Constipation Condition: Good Instructions: ED Constipation Comments: You are seen here in the emergency department for your back pain abdominal pain your workup here in the emergency department was reassuring however you have large amount of constipation which has sent medications for and I have also found T12 fracture on your CT scan. I have given you pain medication to take at home as well for symptoms drink lots of fluidsReturn with any numbness tingling saddle anesthesia incontinence that she is at home Forms: PCP List
[2023-12-13] MEDS ORDERED: iohexoL-300 100 ML VIAL ONE (13:59)
[2023-12-13] MEDS: LIDOCAINE PATCH 4% TOP STA (14:09)
--- NOTE | 2023-12-13 14:59 | CT Report ---
PROCEDURE: Abdomen/Pelvis W INDICATIONS: abd/back pain 1 week CONTRAST: Omni 300 100ml TECHNIQUE: After the administration of intravenous contrast, a CT scan of the abdomen and pelvis was performed. Images were recorded and evaluated at appropriate window settings. Reformats: coronal and sagittal. F or radiation dose reduction, the following was used: automated exposure control, adjustment of mA and /or kV according to patient size. COMPARISON: 06/21/2022. FINDINGS: Image quality: Diagnostic. Lower chest: Mild hiatal hernia. Cardiomegaly.. Liver: No solid mass. Gallbladder: No radiopaque stones or wall thickening. Biliary tree: No intrahepatic or extrahepatic dilation, accounting for age. Spleen: No splenomegaly. Pancreas: No pancreatic ductal dilation. Adrenals: No adrenal nodule. Kidneys and ureters: No hydronephrosis. No renal cystic lesion which requires follow up. No solid mas s. Stomach, bowel and peritoneum: Distended cecum filled with fecal debris measuring 7.5 cm. There is no abnormal wall thickening. Large diffuse right colonic and transverse colonic fecal load. No patholog ic free fluid. Lymph nodes: No central or retroperitoneal adenopathy. Vessels: No infrarenal aortic aneurysm. Patent portal vein. PELVIS Reproductive organs: Uterus is likely surgically absent.. Bladder: No abnormal wall thickening, accounting for underdistention. Pelvic lymph nodes: No pelvic adenopathy by size criteria. Bones: No aggressive osseous animality. Extensive metallic artifact from left hip arthroplasty. Chron ic severe T10 compression fracture. A T12 compression is likely acute or subacute. It is mild to mode rate.. Other: Small right inguinal hernia containing fat. IMPRESSION: 1. Interval development of a mild to moderate T12 compression fracture, likely acute or subacute. 2. Distended cecum filled with fecal material with moderately large right colonic and transverse colo tonia fecal load. Consider possible constipation related to pain medications.. Reviewed by: Edis Page MD on 12/13/2023 2:57 PM PDT Approved by: Edis Page MD on 12/13/2023 2:57 PM PDT Station ID: [id number]
[2023-12-13 15:24] VITALS: O2SAT 99
[2023-12-13] MEDS: iohexoL-300 100 ML VIAL IVP ONE (15:26)
[2023-12-13] MEDS: MINERAL OIL ENEMA 133 ML BOTTLE RC STA (17:01)
[2023-12-13 17:51] VITALS: BP 146/58
== END 2023-12-13 18:34 | disposition home or self-care (01) ==
LOC: ED 10:54
DX: K59.00 Constipation, unspecified (principal); M48.54XA Collapsed vertebra, not elsewhere classified, thoracic region, initial encounter for fracture; W01.0XXA Fall on same level from slipping, tripping and stumbling without subsequent striking against object, initial encounter; I10 Essential (primary) hypertension; E03.9 Hypothyroidism, unspecified; Z79.82 Long term (current) use of aspirin
CPT/HCPCS: 36415; 72100; 74177; 80053; 81003; 83690; 85025; 99284; A9270; Q9967; 81001; 87086